=== PATIENT | female | born 1955 | race African-American/Black ===

== ENCOUNTER 2023-04-25 09:26 | Day surgery (SDC) | payer MEDICARE, OTHER ==
[2023-04-25] VITALS (8 sets, daily range): BP systolic 139–155; BP diastolic 62–91; PULSE 60–74; RESP 15–16; TEMP 98.3; O2SAT 92–98
[~2023-04-25] VITALS: Ht 175.3 cm; Wt 99.0 kg
[2023-04-25] MEDS ORDERED: SELE200C PO (10:40)
[2023-04-25] MEDS ORDERED: LEVO25TA7 PO (10:40)
[2023-04-25] MEDS ORDERED: UBID100C16 PO (10:40)
[2023-04-25] MEDS ORDERED: CARV6.2553 PO (10:40)
[2023-04-25] MEDS ORDERED: SEMA2PEN SQ (10:40)
[2023-04-25] MEDS ORDERED: MAGN400C PO (10:40)
[2023-04-25] MEDS ORDERED: ATOR40TA72 PO (10:40)
[2023-04-25] MEDS ORDERED: MONT-40 PO (10:40)
[2023-04-25] MEDS ORDERED: SPIR25TA5 PO (10:40)
[2023-04-25] MEDS ORDERED: ZINC220T3 PO (10:40)
[2023-04-25] MEDS ORDERED: CHOL50004 PO (10:40)
[2023-04-25] MEDS ORDERED: EMPA25TA PO (10:40)
[2023-04-25] MEDS ORDERED: VALS40TA11 PO (11:30)
[2023-04-25] MEDS ORDERED: INSU100V13 SQ (11:30)
[2023-04-25] MEDS ORDERED: LISI40TA13 PO (11:30)
[2023-04-25] MEDS ORDERED: GABA-530 PO (11:30)
[2023-04-25 14:03] LABS: GLUCOSE,CSF 152 MG/DL (40-75); TOTAL PROTEIN,CSF 95 MG/DL (30-60)
[2023-04-25 14:06] LABS: APPEARANCE,CSF CLEAR; CSF SUPERNATANT COLOR COLORLESS; CSF VOLUME 16 ML; TUBE# COUNTED 4
[2023-04-25 14:07] LABS: CSF RBC 1 /CU MM (0); CSF WBC CT 0 /CU MM (0-5)
[2023-04-26 12:48] LABS: IMMUNOGLOBULIN G, QN, SERUM 659 mg/dL (586-1602)
[2023-04-28 21:28] LABS: ANGIOTENSIN CONVERT ENZ, CSF <1.5 U/L (0.0-3.1)
[2023-04-29 16:07] LABS: IMMUNOGLOBULIN G, QN CSF 2.8 mg/dL (0.0-6.7); VDRL, CSF Non Reactive (Non Rea:<1:1)
== END 2023-04-25 13:55 | disposition home or self-care (01) ==
LOC: SSTAY O 09:26
PROVIDERS: ATTEND Psychiatry & Neurology Neurology
DX: R27.0 Ataxia, unspecified (principal); E11.9 Type 2 diabetes mellitus without complications; G47.30 Sleep apnea, unspecified; I11.0 Hypertensive heart disease with heart failure; I50.9 Heart failure, unspecified; I42.9 Cardiomyopathy, unspecified; E06.3 Autoimmune thyroiditis; M47.896 Other spondylosis, lumbar region; Z90.12 Acquired absence of left breast and nipple; Z85.3 Personal history of malignant neoplasm of breast; Z98.41 Cataract extraction status, right eye; Z98.42 Cataract extraction status, left eye; Z98.890 Other specified postprocedural states; Z88.7 Allergy status to serum and vaccine; Z79.899 Other long term (current) drug therapy
CPT/HCPCS: 36415; 62328; 82040; 82042; 82164; 82784; 82945; 83873; 83916; 84157; 86592; 86617; 87015; 87070; 87102; 89051